=== PATIENT | female | born 1965 | race Two or more races ===

== ENCOUNTER 2022-10-22 10:06 | Emergency (ER) | payer BC, OTHER ==
[~2022-10-22] VITALS: Ht 157.5 cm; Wt 63.8 kg
[2022-10-22] MEDS ORDERED: IBUPROFEN 600 MG TAB PO ONE (11:45)
[2022-10-22] MEDS ORDERED: IBUP400T23 PO (11:48)
[2022-10-22 12:25] VITALS: BP 127/71
== END 2022-10-22 12:33 | disposition home or self-care (01) ==
LOC: ER 10:06
DX: S96.912A Strain of unspecified muscle and tendon at ankle and foot level, left foot, initial encounter (principal); S46.912A Strain of unspecified muscle, fascia and tendon at shoulder and upper arm level, left arm, initial encounter; F32.9 Major depressive disorder, single episode, unspecified; Z88.0 Allergy status to penicillin; Z88.2 Allergy status to sulfonamides; W01.0XXA Fall on same level from slipping, tripping and stumbling without subsequent striking against object, initial encounter; Y93.89 Activity, other specified; Y92.89 Other specified places as the place of occurrence of the external cause; Y99.8 Other external cause status
CPT/HCPCS: 73030; 73600